=== PATIENT | female | born 1980 | race Caucasian/White ===

== ENCOUNTER → 2016-08-09 | Outpatient (CLI) | payer OTHER | LOC: BMCIMAGING 17:45 | PROVIDERS: ATTEND Family Medicine | DX: M25.522 Pain in left elbow (principal) ==

== ENCOUNTER → 2017-06-13 | Outpatient (CLI) | payer OTHER | LOC: BMCIMAGING 10:27 | PROVIDERS: ATTEND Physician Assistant | DX: M25.562 Pain in left knee (principal) ==